=== PATIENT | female | born 1940 | race Caucasian/White ===

== ENCOUNTER 2018-03-18 13:19 | Emergency (ER) | payer MEDICARE, OTHER ==
[~2018-03-18] VITALS: Ht 157.5 cm; Wt 90.0 kg
[2018-03-18 14:09] LABS: ALBUMIN 3.6 g/dL (3.4-5.0); ANION GAP 10 mmol/L (5-15); CALCIUM 8.2 mg/dL (8.5-10.1); CHLORIDE 113 mmol/L (98-107); CREATININE 2.89 mg/dL (0.55-1.02)
[2018-03-18 14:16] LABS: MEAN CORPUSCULAR HGB CONC 31.9 g/dL (32.4-35.8); MEAN CORPUSCULAR VOLUME 90.7 fL (80-100); MEAN PLATELET VOLUME 9.2 fL (7.4-10.4); PLATELET COUNT 312 x10^3/uL (130-400); RED BLOOD COUNT 3.69 x10^6/uL (3.82-5.3); RED CELL DISTRIBUTION WIDTH 15.2 % (9.6-15.2)
[2018-03-18 15:30] VITALS: BP 159/57
[2018-03-18 15:54] LABS: MD YES
[2018-03-18] MEDS ORDERED: INSU100V8 SQ (16:01)
[2018-03-18] MEDS ORDERED: BP MED (16:02)
[2018-03-18] MEDS ORDERED: FURO20TA3 PO (16:03)
[2018-03-18] MEDS ORDERED: CHOLESTEROL MED (16:03)
[2018-03-18] MEDS ORDERED: POTA20PA25 PO (16:04)
[2018-03-18] MEDS ORDERED: SODIUM TABLET (16:04)
[2018-03-18 16:05] LABS: EOS#(MANUAL) 1.44 x10^3/uL (0.0-0.4); EOS% (MANUAL) 2 % (1-7); LYMPHS% (MANUAL) 73 % (22-44); SEGS% (MANUAL) 16 % (42-75)
[2018-03-18 16:06] LABS: OTHER CELLS # (MANUAL) 6.47 x10^3/uL (0-0); OTHER CELLS % (MANUAL) 9 % (0-0)
[2018-03-18 16:07] LABS: ANISOCYTOSIS 1+
[2018-03-18 16:08] LABS: <PLATELET ESTIMATE> ADEQUATE; <PLT MORPHOLOGY> NORMAL PLT MORPH
[2018-03-18 16:09] LABS: SMUDGE CELLS 1+
== END 2018-03-18 16:33 | disposition home or self-care (01) ==
LOC: EDBD 13:19 → ED 16:00
DX: S29.012A Strain of muscle and tendon of back wall of thorax, initial encounter (principal); S00.03XA Contusion of scalp, initial encounter; C91.10 Chronic lymphocytic leukemia of B-cell type not having achieved remission; E11.22 Type 2 diabetes mellitus with diabetic chronic kidney disease; N18.3 Chronic kidney disease, stage 3 (moderate); W01.0XXA Fall on same level from slipping, tripping and stumbling without subsequent striking against object, initial encounter; Y93.89 Activity, other specified; Y92.89 Other specified places as the place of occurrence of the external cause; Y99.8 Other external cause status
CPT/HCPCS: 36415; 70450; 72072; 80048; 82040; 85025; 93005; 99285